=== PATIENT | male | born 1955 | race Caucasian/White ===

== ENCOUNTER → 2024-08-16 | Outpatient (CLI) | payer MEDICARE, MEDICAID, SELFPAY ==
[2024-08-16 08:44] LABS: Glucose Estimated Average 192 mg/dL (80-131); Hemoglobin A1C 8.3 % Hgb (4.8-6.0)
[2024-08-16 09:38] LABS: Alanine Aminotransferase 23 U/L (10-49); Albumin, Serum 4.4 gm/dL (3.4-4.8); Albumin/Globulin Ratio 1.5 (1.2-2.2); Alkaline Phosphatase 73 U/L (46-116); Anion Gap 5 (7-16); Aspartate Amino Transferase < 8 U/L (0-34); BUN/Creatinine Ratio 14 Ratio (12-20); Bilirubin,Total 0.6 mg/dL (0.3-1.2); Blood Urea Nitrogen 17 mg/dL (9-23); Calcium 9.8 mg/dL (8.3-10.6); Calcium (Corrected) 9.8 mg/dL (8.5-10.1); Carbon Dioxide 30.6 mMol/L (20.0-31.0); Cardiac Risk Estimate 3.6 RATIO (4.0-6.7); Chloride 100 mMol/L (98-107); Cholesterol 148 mg/dL (132-200); Creatinine (Component) 1.2 mg/dL (0.6-1.3); Globulin 2.9 gm/dL (2.3-3.5); Glucose 177 mg/dL (74-106); HDL Cholesterol 41 mg/dL (40-60); LDL Cholesterol,Calculated 74 mg/dL (0-130); Osmolality,Calculated 277 (275-295); Potassium 4.4 mMol/L (3.4-5.1); Sodium 136 mMol/L (136-145); Total Protein 7.3 gm/dL (5.7-8.2); Triglycerides 163 mg/dL (30-150); Uric Acid 5.5 mg/dL (3.7-9.2); eGFR > 60 See Note
== END | disposition home or self-care (01) ==
LOC: COPL 07:16
PROVIDERS: PCP Family Medicine; Referring Provider Family Medicine; Visit Provider Family Medicine
DX: E11.65 Type 2 diabetes mellitus with hyperglycemia (principal); E78.2 Mixed hyperlipidemia; E79.0 Hyperuricemia without signs of inflammatory arthritis and tophaceous disease; I10 Essential (primary) hypertension
CPT/HCPCS: 36415; 80053; 80061; 83036; 84550

== ENCOUNTER → 2024-09-13 | Outpatient (CLI) | payer MEDICARE, MEDICAID, SELFPAY ==
--- NOTE | 2024-09-13 12:22 | XR_ITS ---
Examination: Sinus series 3 views TECHNIQUE: Xavier Mendoza lateral sinus series 3 views Exam date and time: September 13, 2024 1415 hours INDICATIONS: Acute frontal sinus pressure and pain 3 months. FINDINGS: Diffuse opacity in the frontal ethmoid air cells Maxillary antra as well as sphenoid air cells also opacified No fluid levels No retention cysts IMPRESSION: Chronic pansinusitis
== END | disposition home or self-care (01) ==
LOC: CDIM 12:07
PROVIDERS: PCP Family Medicine; Referring Provider Family Medicine; Visit Provider Family Medicine
DX: J32.4 Chronic pansinusitis (principal)
CPT/HCPCS: 70220

== ENCOUNTER → 2025-01-05 | Outpatient (CLI) | payer MEDICARE, MEDICAID, SELFPAY ==
[2025-01-05 09:52] LABS: Glucose Estimated Average 160 mg/dL (80-131); Hemoglobin A1C 7.2 % Hgb (4.8-6.0)
[2025-01-05 09:59] LABS: Alanine Aminotransferase 71 U/L (10-49); Albumin, Serum 4.2 gm/dL (3.4-4.8); Albumin/Globulin Ratio 1.4 (1.2-2.2); Alkaline Phosphatase 86 U/L (46-116); Anion Gap 8 (7-16); Aspartate Amino Transferase 38 U/L (0-34); BUN/Creatinine Ratio 14 Ratio (12-20); Bilirubin,Total 0.5 mg/dL (0.3-1.2); Blood Urea Nitrogen 17 mg/dL (9-23); Calcium 9.1 mg/dL (8.3-10.6); Calcium (Corrected) 9.1 mg/dL (8.5-10.1); Carbon Dioxide 28.4 mMol/L (20.0-31.0); Cardiac Risk Estimate 3.2 RATIO (4.0-6.7); Chloride 104 mMol/L (98-107); Cholesterol 146 mg/dL (132-200); Creatinine (Component) 1.2 mg/dL (0.6-1.3); Glucose 158 mg/dL (74-106); HDL Cholesterol 45 mg/dL (40-60); LDL Cholesterol,Calculated 83 mg/dL (0-130); Osmolality,Calculated 283 (275-295); Potassium 4.7 mMol/L (3.4-5.1); Sodium 140 mMol/L (136-145); Total Protein 7.2 gm/dL (5.7-8.2); Triglycerides 89 mg/dL (30-150); Uric Acid 5.8 mg/dL (3.7-9.2); eGFR > 60 See Note
== END | disposition home or self-care (01) ==
LOC: COPL 08:28
PROVIDERS: PCP Family Medicine; Referring Provider Family Medicine; Visit Provider Family Medicine
DX: E11.59 Type 2 diabetes mellitus with other circulatory complications (principal); E78.2 Mixed hyperlipidemia; I10 Essential (primary) hypertension; M10.9 Gout, unspecified
CPT/HCPCS: 36415; 80053; 80061; 83036; 84550

== ENCOUNTER 2025-01-14 18:07 | Emergency (ER) | payer MEDICAID, SELFPAY ==
[2025-01-14 18:12] VITALS: BP 151/97; PULSE 69; RESP 18; TEMP 36.6; O2SAT 95; BMI 38.8
--- NOTE | 2025-01-14 18:38 | PD.EDFALL ---
ED Fall Injury RME/HPI General Chief Complaint: Fall Stated Complaint: LEFT ELBOW, SHOULDER, NECK, LOWER BACK, HIP PAIN Time Seen by Provider: 01/14/25 18:22 Arrival date/time: 01/14/25 18:07 RME / HPI RME / HPI Narrative: 69-year-old male presents to the ED with a complaint of neck, back, left shoulder, left hip, left elbow, left foot pain secondary to a ground-level fall he sustained yesterday. 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 Related Data Home Medications ?Medication ?Instructions ?Recorded ?Confirmed insulin degludec 100 unit/mL 20 - 40 unit subcut QDAY 11/24/18 03/25/23 subcutaneous solution (Tresiba U-100 Insulin) liraglutide 0.6 mg/0.1 mL (18 mg/3 1.8 mg subcut QDAY 11/24/18 03/25/23 mL) subcutaneous pen injector (Victoza 3-Krzysztof) lisinopril 40 mg tablet 10 mg PO QDAY 11/24/18 03/25/23 loratadine 10 mg tablet 10 mg PO QDAY 11/24/18 03/25/23 trazodone 100 mg tablet 100 mg PO QPM 11/24/18 03/25/23 hydrocodone 7.5 mg-acetaminophen 1 tab PO Q6H 07/13/19 03/25/23 325 mg tablet montelukast 10 mg tablet 10 mg PO DAILY 03/25/23 03/25/23 Previous Rx's ?Medication ?Instructions ?Recorded aspirin 81 mg chewable tablet 81 mg PO QDAY ##30 12/10/16 cyclobenzaprine 10 mg tablet 10 mg PO BID #14 tabs 03/22/23 albuterol sulfate 90 mcg/actuation 1 inh inhalation QID PRN shortness 03/28/23 aerosol inhaler of breath or wheezing #6.7 grams doxycycline hyclate 100 mg capsule 100 mg PO QDAY #14 caps 03/28/23 pantoprazole 40 mg tablet,delayed 40 mg PO QDAY #30 tabs 03/28/23 release (Protonix) meloxicam 15 mg tablet 15 mg PO QDAY #10 tabs 01/15/25 Allergies Allergy/AdvReac Type Severity Reaction Status Date / Time sulfamethoxazole Allergy Severe ITCHY,RASH Verified 03/22/23 14:56 trimethoprim Allergy Severe ITCHY,RASH Verified 03/22/23 14:56 Course Orders Category Date Time Status CT cervical spine wo con Stat Exams 01/14/25 18:[address] elbow LT wo con Stat Exams 01/14/25 22:34 Taken XR elbow comp LT min 3V Stat Exams 01/14/25 18:39 Completed XR foot comp LT min 3V Stat Exams 01/14/25 18:41 Completed XR hip LT w pelvis 2-3V Stat Exams 01/14/25 18:39 Completed XR shoulder LT min 2V Stat Exams 01/14/25 18:39 Completed Vital Signs Vital signs: Vital Signs Temperature 97.8 F 01/14/25 18:12 Pulse Rate 69 01/14/25 18:12 Respiratory Rate 18 01/14/25 18:12 Blood Pressure 151/97 H 01/14/25 18:12 Pulse Oximetry (%) 95 01/14/25 18:12 Oxygen Delivery Method Room Air 01/14/25 18:12 Fall Evaluation data The following diagnostics were reviewed and interpreted by me:: radiology exam(s) Interpretation Summary: XR Pelvis/L Hip: FINDINGS: No left hip fracture or dislocation. Right hip bones of the pelvis intact. IMPRESSION: No acute hip or pelvic fracture. XR L Foot: FINDINGS: No acute fracture. No dislocation. Soft tissue vascular calcification. IMPRESSION: No acute fracture. XR L Shoulder: FINDINGS: No shoulder fracture or dislocation. Mild calcific tendinitis. IMPRESSION: No shoulder fracture or dislocation. XR L Elbow: FINDINGS: Nonstandard views. The radial head is dislocated dorsally relative to the articulating surface of the humerus. No definite fracture. IMPRESSION: Dorsal dislocation of the radial head. CT C-Spine: Findings: Axial sections demonstrate intact base of the skull. Advanced disc narrowing C3-C4, C5-C6, C6-C7 and C7-T1. C1 exhibit satisfactory relationship to the odontoid. No acute cervical vertebral body fracture seen. Alignment posterior spinous processes satisfactory. Impression: No acute cervical fracture. Medications / Prescriptions Medications or Prescriptions considered but not ordered:: N/A Discharge Plan Plan Patient Disposition: HOME (Self Care) Discharge Disposition comment: Stable Prescriptions/Referrals Prescriptions/Med Rec: New meloxicam 15 mg tablet 15 mg PO QDAY Qty: 10 0RF No Action aspirin 81 MG tablet,chewable 81 mg PO QDAY Qty: 30 0RF trazodone 100 mg Tablet 100 mg PO QPM lisinopril 40 mg Tablet 10 mg PO QDAY loratadine 10 mg Tablet 10 mg PO QDAY Victoza 3-Krzysztof 0.6 mg/0.1 mL (18 mg/3 mL) Pen Injector 1.8 mg SUBCUT QDAY insulin degludec [Tresiba U-100 Insulin] 100 unit/mL Solution 20 - 40 unit SUBCUT QDAY hydrocodone-acetaminophen 7.5-325 mg Tablet 1 tab PO Q6H cyclobenzaprine 10 mg tablet 10 mg PO BID Qty: 14 0RF montelukast 10 mg tablet 10 mg PO DAILY albuterol sulfate 90 mcg/actuation HFA aerosol inhaler 1 inh inhalation QID PRN (Reason: shortness of breath or wheezing) Qty: 6.7 0RF pantoprazole [Protonix] 40 mg tablet,delayed release (DR/EC) 40 mg PO QDAY Qty: 30 0RF doxycycline hyclate 100 mg capsule 100 mg PO QDAY Qty: 14 0RF Referrals: Chapin Braswell MD [Primary Care Provider] - In 1 week Problem List Clinical Impression: Multiple contusions, Chronic elbow pain Patient/Caregiver Discharge Instructions Education Materials: ED Contusion, Upper Extremity, ED Muscle Strain, Extremity Additional Instructions: Ice and elevate the painful areas. Follow-up with your primary care physician in 24 to 48 hours. Return to the ED for any new or worsening symptoms. Print Language: Estonian Stand Alone Forms: Lucia Award Info., Patient Portal Info Letter PA/DARCI Supervising Physician PA/DARCI Supervising Physician: Dr Stanton
--- NOTE | 2025-01-14 18:39 | XR_ITS ---
Examination: CT cervical spine without contrast 2-D sagittal reconstructions 2-D coronal reconstructions 3-D reconstructions. Exam date and time:January 14, 2025 1850 hours INDICATIONS: Patient fell today with injury to the neck, neck pain CTDI:vol (mGy) 20.1 DLP: (mGycm) 458 Technique: Multiple 2 mm axial sections of the cervical spine have been obtained. The coronal and sagittal reconstructions have been obtained. 3-D reconstructions have been obtained. Low dose protocols were performed. One or more of the following dose reduction techniques were used; automated exposure control, adjustment of the mA and/or KV according to patient size, use of iterative reconstruction technique. Findings: Axial sections demonstrate intact base of the skull. Advanced disc narrowing C3-C4, C5-C6, C6-C7 and C7-T1 C1 exhibit satisfactory relationship to the odontoid. No acute cervical vertebral body fracture seen. Alignment posterior spinous processes satisfactory. Impression: No acute cervical fracture.
--- NOTE | 2025-01-14 18:39 | XR_ITS ---
Examination: Left elbow 3 views Technique: Elbow AP, oblique, lateral 3 views Exam date and time: January 1855 hours INDICATIONS: Injury to the elbow yesterday, elbow pain FINDINGS: Nonstandard views. The radial head is dislocated dorsally relative to the articulating surface of the humerus No definite fracture IMPRESSION: Dorsal dislocation of the radial head.
--- NOTE | 2025-01-14 18:39 | XR_ITS ---
Examination:Left hip AP, lateral, AP pelvis 3 views Technique: Hip AP lateral, AP pelvis, 3 views Exam date and time:January 14, 2025 1855 hours INDICATIONS: Injury to left hip yesterday, left hip pain. FINDINGS: No left hip fracture or dislocation Right hip bones of the pelvis intact IMPRESSION: No acute hip or pelvic fracture.
--- NOTE | 2025-01-14 18:39 | XR_ITS ---
Examination: Shoulder,left, 3 views Technique: Shoulder AP internal rotation, AP external rotation, Y view shoulder, 3 views Exam date and time :January 14, 2025 1905 hours INDICATIONS: Injury to the shoulder yesterday, shoulder pain. FINDINGS: No shoulder fracture or dislocation Mild calcific tendinitis IMPRESSION: No shoulder fracture or dislocation
--- NOTE | 2025-01-14 18:41 | XR_ITS ---
Examination: Foot, left, 3 views Technique: AP, oblique, lateral views foot, 3 views Date and time of exam: January 14, 2025 1855 hours INDICATIONS: Injury to left foot yesterday, with foot pain no acute fracture. No dislocation Soft tissue vascular calcification IMPRESSION: No acute fracture
--- NOTE | 2025-01-14 22:34 | XR_ITS ---
Examination: CT left elbow, without contrast. 2-D sagittal reconstructions. 2-D coronal reconstructions. 3-D reconstructions. Date and time of exam:January 15, 2020 5:50 PM Comparison October 22, 2008 INDICATIONS: Patient fell today with injury to available elbow pain and deformity CTDI: vol (mGy):6 DLP: (mGycm):127 Technique: Multiple 1.25 mm axial sections of the without intravenous contrast have been obtained. 2-D sagittal and coronal reconstructions have been obtained. 3-D reconstructions have been obtained. Low dose protocols were performed. One or more of the following dose reduction techniques were used; automated exposure control, adjustment of the mA and/or KV according to patient size, use of iterative reconstruction technique. Findings: Again noted posterior dislocation of the elbow, and apparent chronic finding also noted on the October 22, 2008 exam No acute fracture No foreign body No cortical bone destruction IMPRESSION: Again noted posterior displacement of the radial head relative to the articulating surface of the humerus, identical position compared with October 22, 2008
--- NOTE | 2025-01-15 01:23 | PRELIM_ITS ---
CT left elbow without intravenous contrast (axial sections with sagittal and coronal reformats): January 14, 2025 at 2350 hours Clinical History: Injury/pain/deformity. Comparison: No prior study is available for comparison. Findings: There is osteopenia. No acute fracture is seen. There is proximal and radial migration of the radial head, suggestive of chronic dislocation. Lucencies are seen in the distal humerus and at the olecranon process, likely secondary to degenerative changes. No significant joint effusion is seen. The visualized muscles are unremarkable with maintained intermuscular fat planes. There is ill defined fat stranding and mild soft tissue swelling in posterior aspect of elbow and proximal forearm, likely soft tissue contusion. Ossific densities are seen at the tip of the olecranon process, likely representing calcific tendinitis. Impression: 1. No evidence of acute fracture. Proximal and radial migration of the radial head, suggestive of chronic dislocation. Recommend clinical correlation. 2. Soft tissue contusion in the posterior aspect of the elbow. 3. Ossific densities at the tip of the olecranon process, likely representing calcific tendinitis. Recommend clinical correlation. Discussion Details: Results Discussed With : Dr Stanton at 01:14 AM 01/15/2025 Report Electronically Signed By: Swetha Aquino 01/15/2025 1:23:24 AM [EST]
== END 2025-01-15 02:06 | disposition home or self-care (01) ==
PROVIDERS: Emergency Provider Emergency Medicine; PCP Family Medicine
DX: S53.005A Unspecified dislocation of left radial head, initial encounter (principal); S99.922A Unspecified injury of left foot, initial encounter; S19.9XXA Unspecified injury of neck, initial encounter; S79.912A Unspecified injury of left hip, initial encounter; S49.92XA Unspecified injury of left shoulder and upper arm, initial encounter; W18.30XA Fall on same level, unspecified, initial encounter
CPT/HCPCS: 72125; 73030; 73080; 73200; 73502; 73630; 99284

== ENCOUNTER 2025-01-23 08:03 | Emergency (ER) | payer MEDICAID, SELFPAY ==
[2025-01-23 08:04] VITALS: BMI 37.5
[2025-01-23 08:10] VITALS: BP 190/81; PULSE 74; RESP 18; TEMP 36.7; O2SAT 98
--- NOTE | 2025-01-23 08:16 | XR_ITS ---
Examination: CT abdomen and pelvis without contrast. Coronal 3-D reconstructions. Sagittal 2-D reconstructions. Date and time of exam:January 23, 2025 0844 hours INDICATIONS: Patient fell 4 days ago with injury to the abdomen, left flank pain left-sided hip pain CTDI: vol (mGy): 13.8 DLP: (mGycm): 884 Technique: Axial images of the abdomen have been obtained, 3 mm slice thickness Intravenous contrast material has not been administered. Low dose protocols were performed. One or more of the following dose reduction techniques were used; automated exposure control, adjustment of the mA and/or KV according to patient size, use of iterative reconstruction technique. Findings: No focal liver or splenic lesions Absent gallbladder No pancreatic or adrenal mass No perinephric hematoma Abdominal aorta intact, no free blood in the abdomen or pelvis No pericecal inflammatory change Contracted urinary bladder Mediolateral prostate dimension 5.2 cm Moderate osteopenia 8mm sclerotic focus in the body of L5, 5 mm sclerotic focus in the first sacral segment Hips appear intact IMPRESSION: No abdominal parenchymal laceration Abdominal aorta intact No free blood in the abdomen. 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
[2025-01-23] MEDS: MORPHINE SULF INJ 10 MG/ML VIAL 4 MG IVP (08:33)
[2025-01-23] MEDS: ONDANSETRON INJ 2 MG/ML INJ 2 ML 4 MG IVP (08:33)
[2025-01-23 09:01] LABS: Basophils # (Auto) 0.1 Thou/mm3 (0.0-0.2); Basophils % (Auto) 1 % (0-2.5); Eosinophils # (Auto) 0.2 Thou/mm3 (0.0-0.5); Eosinophils % (Auto) 2 % (0-10); Hematocrit 41.7 % (41.0-53.0); Hemoglobin 14.7 g/dL (13.5-16.0); Immature Granulocytes % (Auto) 1 % (0-0); Immature Granulocytes Auto 0.06 Thou/mm3 (0.00-0.00); Lymphocytes # (Auto) 1.7 Thou/mm3 (1.0-4.8); Lymphocytes % (Auto) 19 % (10-50); Mean Corpuscular HGB Conc 35.3 g/dl (31.0-37.0); Mean Corpuscular Hemoglobin 29.9 pg (25.0-35.0); Mean Corpuscular Volume 85 fL (80-100); Monocytes # (Auto) 0.8 Thou/mm3 (0.0-0.8); Monocytes % (Auto) 9 % (0-12); Neutrophils # (Auto) 6.2 Thou/mm3 (1.8-7.7); Neutrophils % (Auto) 68 % (37-80); Nucleated Red Blood Cell % 0 /100 WBC (0); Platelet Count 220 Thou/mm3 (140-440); RDW Standard Deviation 41.2 fL (35.1-43.9); Red Blood Count 4.91 Miln/mm3 (4.50-5.90); White Blood Count 9.1 Thou/mm3 (3.8-10.6)
[2025-01-23 09:20] LABS: Alanine Aminotransferase 84 U/L (10-49); Albumin, Serum 4.3 gm/dL (3.4-4.8); Albumin/Globulin Ratio 1.4 (1.2-2.2); Alkaline Phosphatase 92 U/L (46-116); Anion Gap 7 (7-16); Aspartate Amino Transferase 42 U/L (0-34); BUN/Creatinine Ratio 13 Ratio (12-20); Bilirubin,Total 0.7 mg/dL (0.3-1.2); Blood Urea Nitrogen 15 mg/dL (9-23); Calcium 9.5 mg/dL (8.3-10.6); Calcium (Corrected) 9.5 mg/dL (8.5-10.1); Carbon Dioxide 29.5 mMol/L (20.0-31.0); Chloride 100 mMol/L (98-107); Creatinine (Component) 1.2 mg/dL (0.6-1.3); Estimated Creatinine Clearance 69.3 mL/min (>60); Glucose 158 mg/dL (74-106); Lipase 33 U/L (12-53); Osmolality,Calculated 275 (275-295); Potassium 4.7 mMol/L (3.4-5.1); Sodium 136 mMol/L (136-145); Total Protein 7.3 gm/dL (5.7-8.2); eGFR > 60 See Note
[2025-01-23] MEDS: KETOROLAC INJ 30 MG/ML VIAL 15 MG IVP (09:47)
[2025-01-23 09:59] LABS: Collection Type, Urine Clean Catch
[2025-01-23 10:01] VITALS: BP 134/61; PULSE 67; RESP 18; TEMP 36.4; O2SAT 94
--- NOTE | 2025-01-23 10:27 | PD.EDBACK ---
ED Back Injury Pain RME/HPI General Chief Complaint: Hip Injury/Pain Stated Complaint: PAIN, 8/10, L) SIDE/HIP/ KIDNEY Time Seen by Provider: 01/23/25 08:30 Arrival date/time: 01/23/25 08:03 Limitations: no limitations RME / HPI RME / HPI Narrative: 69 year old male with history of CAD, hypertension, diabetes, and COPD presents to the ED for evaluation of worsening left sided back and hip pain following a fall on 01/13/2025. Patient reports he slipped on water at a grocery store and fell onto his left side. Evaluated here at that time, with imaging reported as unremarkable, and was discharged home. Since then, the pain has gradually worsened and became severe today. He describes the pain as aching and rates it as severe. He denies any new falls or injuries. The patient also states he was referred to pain management by a transitions manager involved in his case but has not yet received any medications. Related Data Home Medications ?Medication ?Instructions ?Recorded ?Confirmed insulin degludec 100 unit/mL 20 - 40 unit subcut QDAY 11/24/18 03/25/23 subcutaneous solution (Tresiba U-100 Insulin) liraglutide 0.6 mg/0.1 mL (18 mg/3 1.8 mg subcut QDAY 11/24/18 03/25/23 mL) subcutaneous pen injector (Victoza 3-Krzysztof) lisinopril 40 mg tablet 10 mg PO QDAY 11/24/18 03/25/23 loratadine 10 mg tablet 10 mg PO QDAY 11/24/18 03/25/23 trazodone 100 mg tablet 100 mg PO QPM 11/24/18 03/25/23 hydrocodone 7.5 mg-acetaminophen 1 tab PO Q6H 07/13/19 03/25/23 325 mg tablet montelukast 10 mg tablet 10 mg PO DAILY 03/25/23 03/25/23 Previous Rx's ?Medication ?Instructions ?Recorded aspirin 81 mg chewable tablet 81 mg PO QDAY ##30 12/10/16 cyclobenzaprine 10 mg tablet 10 mg PO BID #14 tabs 03/22/23 albuterol sulfate 90 mcg/actuation 1 inh inhalation QID PRN shortness 03/28/23 aerosol inhaler of breath or wheezing #6.7 grams doxycycline hyclate 100 mg capsule 100 mg PO QDAY #14 caps 03/28/23 pantoprazole 40 mg tablet,delayed 40 mg PO QDAY #30 tabs 03/28/23 release (Protonix) meloxicam 15 mg tablet 15 mg PO QDAY #10 tabs 01/15/25 hydrocodone 5 mg-acetaminophen 325 1 tab PO Q6H pain #20 tabs 01/23/25 mg tablet Allergies Allergy/AdvReac Type Severity Reaction Status Date / Time sulfamethoxazole Allergy Severe ITCHY,RASH Verified 01/23/25 08:07 trimethoprim Allergy Severe ITCHY,RASH Verified 01/23/25 08:07 Review of Systems Review of Systems Systems Reviewed: All systems reviewed, normal except as documented Past Medical History Past Medical History NEUROLOGIC: Positive Migraine CARDIAC: Positive Angina and Hypertension RESPIRATORY: Positive Chronic Obstructive Pulmonary Disease (COPD) and Sleep Apnea GASTROINTESTINAL: Positive Gastrointestinal Disorders and Gall Bladder Disease GENITOURINARY: Positive Genitourinary Disorders, Kidney Stones and Benign Prostatic Hyperplasia MUSCULOSKELETAL: Positive Musculoskeletal Disorders, Arthritis, Fractures and Degenerative Joint Disease ENDOCRINE: Positive Endocrine Disorders and Diabetes Mellitus Type 2 PSYCHO/SOCIAL: Positive Anxiety OTHER HISTORY: Positive Hospitalization, Falls, Chicken Pox, Measles and Mumps Family History FAMILY HISTORY: Positive Family Cancer and Family Surgery Surgical History SURGICAL: Positive Angiogram, Abdominal Surgery and Vasectomy Social History SMOKING STATUS: Former smoker SUBSTANCE USE: does not use ED Exam General Limitations: Present no limitations General appearance: Present alert and in no apparent distress Head Head exam: Present atraumatic Eye Eye exam: Present normal appearance, PERRL and EOMI ENT ENT exam: Present normal exam, normal oropharynx and mucous membranes moist Neck Neck exam: Present normal inspection, full ROM and trachea midline Chest Chest inspection: Present normal inspection and symmetric chest wall rise Respiratory Respiratory exam: Present normal lung sounds bilaterally Cardiovascular Cardiovascular exam: Present regular rate, normal rhythm and normal heart sounds Abdominal Exam Abdominal exam: Present soft, normal bowel sounds and other (Ventral hernia, obese, ) Extremities Exam Extremities exam: Present full ROM and other (No shortening of legs, the patient hesitates to move his left leg but does have FROM with external and internal rotation, ) Back Exam Back exam: Present full ROM and other (Paraspinous muscle spasms in the lower thoracic area over T12-L2 bilaterally, L>R. No spinous tenderness. ) Neurological Exam Neurological exam: Present alert, oriented X3 and CN II-XII intact Psychiatric Psychiatric exam: Present normal affect and normal mood Skin Skin exam: Present warm, dry, intact and normal color Course Quality Measures none Orders Category Date Time Status Insert IV NOW Care 01/23/25 08:[address] abdomen pelvis wo con Stat Exams 01/23/25 08:16 Completed CBC Stat Lab 01/23/25 08:52 Completed Comprehensive Metabolic Panel Stat Lab 01/23/25 08:52 Completed Lipase Stat Lab 01/23/25 08:52 Completed UA, C/S IF [Urinalysis, C/S if Indicated] Stat Lab 01/23/25 09:49 Completed Ketorolac Inj [Toradol Inj] Med 01/23/25 09:03 Discontinued 15 mg IVP X1 ONE Morphine Inj Med 01/23/25 08:16 Discontinued 4 mg IVP X1 ONE Ondansetron Inj [Zofran Inj] Med 01/23/25 08:16 Discontinued 4 mg IVP X1 ONE Vital Signs Vital signs: Vital Signs Temperature 98.0 F 01/23/25 08:10 Pulse Rate 74 01/23/25 08:10 Respiratory Rate 18 01/23/25 08:10 Blood Pressure 190/81 H 01/23/25 08:10 Pulse Oximetry (%) 98 01/23/25 08:10 Oxygen Delivery Method Room Air 01/23/25 08:10 Pulse ox is 98% on room air which is adequate. Back Pain / Injury MDM Narrative MDM Narrative:: Simona Payan am scribing for and in the presence of Dr. Squires. Patient remains clinically stable throughout the emergency department visit. We reviewed all the results, analysis, and treatment plans. Patient is amenable to discharge. Strict return precautions were outlined. Patient was discharged in stable condition. Patient data External records reviewed:: [facility] previous records (I reviewed ED Visit after fall on 01/13/2025 ) Clinical information provided by:: patient Social determinants that could affect healthcare access:: none Patient has the following chronic illnesses:: CAD, hypertension, diabetes, and COPD Fall on 01/13/2025 How is presenting disease/condition affected by chronic disease/condition?: exacerbated by Evaluation data The following diagnostics were reviewed and interpreted by me:: lab results and radiology exam(s) Lab and/or radiology exams considered but not ordered:: None Interpretation Summary: Ordering Physician: Rashad SILVESTRE),Feng NUNEZ Date of Service: 01/23/25 Procedure(s): CT abdomen pelvis wo con Accession Number(s): [id number] cc: Rashad SILVESTRE),Feng NUNEZ; Daniele Katz MD; NO PRIMARY/FAMILY,PHYSICIAN~ Examination: CT abdomen and pelvis without contrast. Coronal 3-D reconstructions. Sagittal 2-D reconstructions. Date and time of exam:January 23, 2025 0844 hours INDICATIONS: Patient fell 4 days ago with injury to the abdomen, left flank pain left-sided hip pain CTDI: vol (mGy): 13.8 DLP: (mGycm): 884 Technique: Axial images of the abdomen have been obtained, 3 mm slice thickness Intravenous contrast material has not been administered. Low dose protocols were performed. One or more of the following dose reduction techniques were used; automated exposure control, adjustment of the mA and/or KV according to patient size, use of iterative reconstruction technique. Findings: No focal liver or splenic lesions Absent gallbladder No pancreatic or adrenal mass No perinephric hematoma Abdominal aorta intact, no free blood in the abdomen or pelvis No pericecal inflammatory change Contracted urinary bladder Mediolateral prostate dimension 5.2 cm Moderate osteopenia 8mm sclerotic focus in the body of L5, 5 mm sclerotic focus in the first sacral segment Hips appear intact IMPRESSION: No abdominal parenchymal laceration Abdominal aorta intact No free blood in the abdomen. 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 Dictated By: Daniele Katz MD Signed By: <Electronically signed by Daniele Katz MD in OV> 01/23/25 0907 Medications / Prescriptions Medications or Prescriptions considered but not ordered:: None Medication administrations:: Medication Administration History Discontinued Medications Ketorolac Tromethamine (Ketorolac Inj 30 Mg/Ml Vial) 15 mg IVP X1 ONE Stop: 01/23/25 09:04 Last Admin: 01/23/25 09:47 Dose: 15 mg Documented By: EH Morphine Sulfate (Morphine Sulf Inj 10 Mg/Ml Vial) 4 mg IVP X1 ONE Stop: 01/23/25 08:17 Last Admin: 01/23/25 08:33 Dose: 4 mg Documented By: DB Ondansetron HCl (Ondansetron Inj 2 Mg/Ml Inj 2 Ml) 4 mg IVP X1 ONE; Protocol Stop: 01/23/25 08:17 Last Admin: 01/23/25 08:33 Dose: 4 mg Documented By: DB See above Consultations Consultation(s) initiated? (list below): No Diagnosis Differential diagnosis back pain/injury: lumbar radiculopathy, sciatica, strain of lumbar region, thoracic back pain and discitis Most likely diagnosis given after review of the tests above:: Fall Multiple contusions Back spasms Admission Indicated Admission indicated?: not indicated Admission Request Was there a request for admission?: No Disposition Plan Disposition Plan: Discharge Discharge Attestation Discharge Attestation: The patient and all family members were given an opportunity to ask questions and understood the discharge instructions. Discharge instructions specifically effects, indications for sooner follow up or return to the emergency department, and the expected course of current diagnosis. Patient condition: Stable Discharge Plan Plan Patient Disposition: HOME (Self Care) Prescriptions/Referrals Prescriptions/Med Rec: New hydrocodone-acetaminophen 5-325 mg tablet 1 tab PO Q6H MDD 4 Qty: 20 0RF No Action aspirin 81 MG tablet,chewable 81 mg PO QDAY Qty: 30 0RF trazodone 100 mg Tablet 100 mg PO QPM lisinopril 40 mg Tablet 10 mg PO QDAY loratadine 10 mg Tablet 10 mg PO QDAY Victoza 3-Krzysztof 0.6 mg/0.1 mL (18 mg/3 mL) Pen Injector 1.8 mg SUBCUT QDAY insulin degludec [Tresiba U-100 Insulin] 100 unit/mL Solution 20 - 40 unit SUBCUT QDAY hydrocodone-acetaminophen 7.5-325 mg Tablet 1 tab PO Q6H cyclobenzaprine 10 mg tablet 10 mg PO BID Qty: 14 0RF montelukast 10 mg tablet 10 mg PO DAILY albuterol sulfate 90 mcg/actuation HFA aerosol inhaler 1 inh inhalation QID PRN (Reason: shortness of breath or wheezing) Qty: 6.7 0RF pantoprazole [Protonix] 40 mg tablet,delayed release (DR/EC) 40 mg PO QDAY Qty: 30 0RF doxycycline hyclate 100 mg capsule 100 mg PO QDAY Qty: 14 0RF meloxicam 15 mg tablet 15 mg PO QDAY Qty: 10 0RF Referrals: No Primary/Family,Physician [Primary Care Provider] - In 1 week Problem List Clinical Impression: Fall, Multiple contusions, Back spasm Patient/Caregiver Discharge Instructions Education Materials: ED Muscle Spasm, ED Muscle Strain, Extremity Additional Instructions: On your CT report, there is Sclerotic foci L5 and S1, consider early osteoblastic metastatic disease, recommend whole body nuclear medicine bone scan follow-up. Follow-up with your primary care doctor in 3 to 5 days for recheck. You can return to the emergency department sooner if symptoms worsen or if you notice any new, concerning issues. Print Language: Setswana Stand Alone Forms: Lucia Award Info., Patient Portal Info Letter
[2025-01-23 10:38] LABS: Bilirubin,Urine Negative (Negative); Blood,Urine Negative (Negative); Clarity,Urine Clear (Clear/Hazy); Color,Urine Lt-Yellow (Lt Yel-Yel); Culture Indicated,Urine Not Indicated; Glucose, Urine Negative (Negative); Ketones,Urine Negative (Negative); Leukocyte Esterase,Urine Negative (Negative); Nitrite,Urine Negative (Negative); PH,Urine 6.5 (5.0-7.0); Protein,Urine Negative (Neg - Trace); RBC,Urine 2 /hpf (0-3); Specific Gravity,Urine 1.016 (1.001-1.035); Squamous Epithelial Cell,Urine < 1 /hpf (0-5); Urobilinogen,Urine Negative mg/dL (0.0-1.0); WBC,Urine < 1 /hpf (0-5)
[2025-01-23 11:39] VITALS: BP 129/92; PULSE 73; RESP 18; TEMP 36.7; O2SAT 97
== END 2025-01-23 11:40 | disposition home or self-care (01) ==
PROVIDERS: Nurse Practitioner Primary Care; Emergency Provider Family Medicine
DX: M62.830 Muscle spasm of back (principal); T14.8XXA Other injury of unspecified body region, initial encounter; W01.0XXA Fall on same level from slipping, tripping and stumbling without subsequent striking against object, initial encounter; Y92.512 Supermarket, store or market as the place of occurrence of the external cause; G95.89 Other specified diseases of spinal cord; M85.88 Other specified disorders of bone density and structure, other site; E11.9 Type 2 diabetes mellitus without complications; I10 Essential (primary) hypertension; I25.10 Atherosclerotic heart disease of native coronary artery without angina pectoris; J44.9 Chronic obstructive pulmonary disease, unspecified; M25.552 Pain in left hip
CPT/HCPCS: 36415; 74176; 80053; 81001; 83690; 85025; 96374; 96375; 99284; J1885; J2270; J2405

== ENCOUNTER → 2025-02-14 | Outpatient (CLI) | payer MEDICARE, MEDICAID, SELFPAY ==
--- NOTE | 2025-02-14 12:30 | XR_ITS ---
Examination: Bone scan whole body, radioisotope Date and time of exam: February 14, 2025 1217 hours INDICATIONS: Patient fell 6 months ago with injury to the lower back, lower back pain Technique: Study has been performed with intravenous administration of 24.6 mci 99M technetium MDP. Anterior, posterior whole body images are obtained. Images have been obtained including the lower extremities. Findings: Increased isotopic involving mid dorsal vertebral body, likely T7 Otherwise symmetrical isotope accumulation IMPRESSION: Positive for increased isotope accumulation mid dorsal vertebral body, likely T7 Consider CT scan thoracic spine without contrast follow-up
== END | disposition home or self-care (01) ==
PROVIDERS: PCP Family Medicine; Referring Provider Family Medicine; Visit Provider Family Medicine
DX: M89.8X8 Other specified disorders of bone, other site (principal)
CPT/HCPCS: 78306; A9503

== ENCOUNTER → 2025-02-18 | Outpatient (CLI) | payer MEDICARE, MEDICAID, SELFPAY ==
--- NOTE | 2025-02-18 15:15 | XR_ITS ---
Examination: MRI lumbar spine without contrast Date and time of exam: February 18, 2025, 1620 hours INDICATIONS: Lower back pain radiating down the left leg with urinary retention one month after falling one month ago with injury to the back Technique: Multiple MRI axial and sagittal sections lumbar spine. Sagittal T2-weighted images, TR 3500, TE 118 T1 weighted transverse sections, TR 688 T8.5, T2-weighted sagittal sections T1 weighted sagittal sections TR 621, TE 30 T2 axial sections, TR 4, 190, TE 84. Findings: Adequate alignment lumbar vertebral bodies Mild old wedging T12 No acute lumbar fracture Diffuse lumbar disc desiccation Axial images demonstrate no focal lumbar disc protrusion No spondylolisthesis IMPRESSION: No lumbar fracture No focal lumbar disc protrusion
== END | disposition home or self-care (01) ==
LOC: SMRI 14:40
PROVIDERS: PCP Family Medicine; Referring Provider Family Medicine; Visit Provider Family Medicine
DX: S39.92XA Unspecified injury of lower back, initial encounter (principal); W19.XXXA Unspecified fall, initial encounter
CPT/HCPCS: 72148

== ENCOUNTER 2025-04-11 11:03 | Emergency (ER) | payer OTHER, MEDICAID, SELFPAY ==
--- NOTE | 2025-04-11 11:41 | EKG_ITS ---
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
--- NOTE | 2025-04-11 11:41 | XR_ITS ---
Examination: Duplex scan of the lower extremity, unilateral left Date and time of exam: The second 2024 to hours INDICATIONS: Leg pain beginning 3 weeks ago Technique: Duplex scan of the extremity veins using B-mode/grayscale imaging and Doppler spectral analysis and color flow Attention is directed to internal echogenicity, compression and augmentation involving these veins, color flow assessment, spectral analysis Findings: Major deep venous structures in the extremity demonstrate normal course and caliber. There is no evidence of deep vein thrombosis. Normal color flow and spectral analysis Impression: Negative for DVT..
--- NOTE | 2025-04-11 11:41 | XR_ITS ---
Examination: PA lateral chest 2 views TECHNIQUE: Upright PA lateral chest 2 views Date and time: April 11, 2025 1218 hours INDICATIONS: Shortness of breath beginning 2 days ago. FINDINGS: Mild prominence left ventricle No lobar pneumonia or pulmonary edema Moderate osteopenia IMPRESSION: No pneumonia or pulmonary edema
[2025-04-11 11:43] VITALS: BP 138/81; PULSE 73; RESP 18; TEMP 36.7; O2SAT 96
--- NOTE | 2025-04-11 11:44 | PD.EDRME ---
Rapid Medical Screening Exam RME Arrival date/time: 04/11/25 11:03 69-year-old male with a history of COPD, type 2 diabetes, hypertension presents to the emergency room with a chief complaint of shortness of breath and left lower leg swelling x 3 days I have greeted and performed a focused initial assessment of this patient. A comprehensive ED assessment and evaluation of the patient, analysis of all test results, and completion of the medical decision making process will be conducted by additional ED providers. Chief Complaint: Shortness of Breath/Dyspnea Time Seen by Provider: 04/11/25 11:34 Vital signs reviewed by provider: Yes
[2025-04-11 13:12] LABS: Basophils # (Auto) 0.1 Thou/mm3 (0.0-0.2); Basophils % (Auto) 1 % (0-2.5); Eosinophils # (Auto) 0.2 Thou/mm3 (0.0-0.5); Eosinophils % (Auto) 2 % (0-10); Hematocrit 43.2 % (41.0-53.0); Hemoglobin 14.8 g/dL (13.5-16.0); Immature Granulocytes Auto 0.03 Thou/mm3 (0.00-0.00); Lymphocytes # (Auto) 1.7 Thou/mm3 (1.0-4.8); Lymphocytes % (Auto) 19 % (10-50); Mean Corpuscular HGB Conc 34.3 g/dl (31.0-37.0); Mean Corpuscular Hemoglobin 29.8 pg (25.0-35.0); Mean Corpuscular Volume 87 fL (80-100); Monocytes # (Auto) 0.6 Thou/mm3 (0.0-0.8); Monocytes % (Auto) 7 % (0-12); Neutrophils # (Auto) 6.2 Thou/mm3 (1.8-7.7); Neutrophils % (Auto) 70 % (37-80); Nucleated Red Blood Cell # 0.00 Thou/mm3 (0.00-0.00); Nucleated Red Blood Cell % 0 /100 WBC (0); Platelet Count 225 Thou/mm3 (140-440); RDW Standard Deviation 42.5 fL (35.1-43.9); Red Blood Count 4.97 Miln/mm3 (4.50-5.90); White Blood Count 8.8 Thou/mm3 (3.8-10.6)
[2025-04-11 13:29] LABS: B-Type Natriuretic Peptide 25 pg/mL (0-100); D-Dimer < 250 ng/mL (<600)
[2025-04-11 13:31] LABS: INR 1.0 (0.9-1.3); Partial Thromboplastin Time 24.5 Seconds (22.0-36.0); Prothrombin Time 10.8 Seconds (9.0-12.2)
[2025-04-11 13:34] LABS: Alanine Aminotransferase 18 U/L (10-49); Albumin, Serum 4.2 gm/dL (3.4-4.8); Albumin/Globulin Ratio 1.4 (1.2-2.2); Alkaline Phosphatase 66 U/L (46-116); Anion Gap 9 (7-16); Aspartate Amino Transferase 15 U/L (0-34); BUN/Creatinine Ratio 9 Ratio (12-20); Bilirubin,Total 0.4 mg/dL (0.3-1.2); Blood Urea Nitrogen 9 mg/dL (9-23); Calcium 10.1 mg/dL (8.3-10.6); Calcium (Corrected) 10.1 mg/dL (8.5-10.1); Carbon Dioxide 26.4 mMol/L (20.0-31.0); Chloride 102 mMol/L (98-107); Creatinine (Component) 1.0 mg/dL (0.6-1.3); Estimated Creatinine Clearance 87.7 mL/min (>60); Globulin 2.9 gm/dL (2.3-3.5); Glucose 180 mg/dL (74-106); Osmolality,Calculated 277 (275-295); Potassium 4.1 mMol/L (3.4-5.1); Sodium 137 mMol/L (136-145); Total Protein 7.1 gm/dL (5.7-8.2); Troponin I < 0.002 ng/mL (0.0-0.045); eGFR > 60 See Note
[2025-04-11] MEDS: MORPHINE SULF INJ 10 MG/ML VIAL 4 MG IVP (14:24)
[2025-04-11] MEDS: ONDANSETRON INJ 2 MG/ML INJ 2 ML 4 MG IVP (14:24)
[2025-04-11 14:28] VITALS: BP 126/85; PULSE 68; RESP 18; O2SAT 96
--- NOTE | 2025-04-11 14:47 | PC.NURSE ---
Patient came into the hospital for c/o shortness of breath, left leg swelling and back pain and constipation. Patient stated that he fell 4 months ago that has been causing pain to his back. Pt is currently alert and oriented, VSS, IV inserted to right AC. Pt continoues to c/o pain to back that circles to his abdomen.
[2025-04-11 14:52] LABS: Collection Type, Urine Clean Catch; Squamous Epithelial Cell,Urine 0 /hpf (0-5)
[2025-04-11 15:01] LABS: Bilirubin,Urine Negative (Negative); Blood,Urine Negative (Negative); Clarity,Urine Clear (Clear/Hazy); Color,Urine Lt-Yellow (Lt Yel-Yel); Glucose, Urine Negative (Negative); Ketones,Urine Negative (Negative); Leukocyte Esterase,Urine Negative (Negative); Nitrite,Urine Negative (Negative); PH,Urine 7.0 (5.0-7.0); Protein,Urine Negative (Neg - Trace); RBC,Urine < 1 /hpf (0-3); Specific Gravity,Urine 1.011 (1.001-1.035); Urobilinogen,Urine Negative mg/dL (0.0-1.0); WBC,Urine < 1 /hpf (0-5)
[2025-04-11] MEDS: KETOROLAC INJ 30 MG/ML VIAL IVP (15:31)
--- NOTE | 2025-04-11 15:35 | PD.EDADULT ---
ED General RME/HPI General Chief complaint: Shortness of Breath/Dyspnea Stated complaint: L) FOOT SWELLING, DYSPNEA, L) SIDE ABD PAIN Time Seen by Provider: 04/11/25 11:34 Arrival date/time: 04/11/25 11:03 CC: Left low back pain, left leg pain left leg swelling onset going for 3 days denies any resolution at nighttime. Patient denies chest pain but is complaining of intermittent shortness of breath. Note: Patient states he has chronic back pain in the center of the back but not in the left flank as stated. RME / HPI RME / HPI narrative: 04/11/25 11:03 69-year-old male with a history of COPD, type 2 diabetes, hypertension presents to the emergency room with a chief complaint of shortness of breath and left lower leg swelling x 3 days I have greeted and performed a focused initial assessment of this patient. A comprehensive ED assessment and evaluation of the patient, analysis of all test results, and completion of the medical decision making process will be conducted by additional ED providers. Related Data Home Medications ?Medication ?Instructions ?Recorded ?Confirmed insulin degludec 100 unit/mL 20 - 40 unit subcut QDAY 11/24/18 03/25/23 subcutaneous solution (Tresiba U-100 Insulin) liraglutide 0.6 mg/0.1 mL (18 mg/3 1.8 mg subcut QDAY 11/24/18 03/25/23 mL) subcutaneous pen injector (Victoza 3-Krzysztof) lisinopril 40 mg tablet 10 mg PO QDAY 11/24/18 03/25/23 loratadine 10 mg tablet 10 mg PO QDAY 11/24/18 03/25/23 trazodone 100 mg tablet 100 mg PO QPM 11/24/18 03/25/23 hydrocodone 7.5 mg-acetaminophen 1 tab PO Q6H 07/13/19 03/25/23 325 mg tablet montelukast 10 mg tablet 10 mg PO DAILY 03/25/23 03/25/23 Previous Rx's ?Medication ?Instructions ?Recorded aspirin 81 mg chewable tablet 81 mg PO QDAY ##30 12/10/16 cyclobenzaprine 10 mg tablet 10 mg PO BID #14 tabs 03/22/23 albuterol sulfate 90 mcg/actuation 1 inh inhalation QID PRN shortness 03/28/23 aerosol inhaler of breath or wheezing #6.7 grams doxycycline hyclate 100 mg capsule 100 mg PO QDAY #14 caps 03/28/23 pantoprazole 40 mg tablet,delayed 40 mg PO QDAY #30 tabs 03/28/23 release (Protonix) meloxicam 15 mg tablet 15 mg PO QDAY #10 tabs 01/15/25 hydrocodone 5 mg-acetaminophen 325 1 tab PO Q6H pain #20 tabs 01/23/25 mg tablet polyethylene glycol 3350 17 4 g PO QDAY #238 grams 04/11/25 gram/dose oral powder (Miralax) Allergies Allergy/AdvReac Type Severity Reaction Status Date / Time sulfamethoxazole Allergy Severe ITCHY,RASH Verified 04/11/25 11:07 trimethoprim Allergy Severe ITCHY,RASH Verified 04/11/25 11:07 Review of Systems Review of Systems Narrative Review of Systems: GEN: No fever, no chills, no weight loss EYES: No discharge, no visual changes, no pain HEENT: No ear pain, no congestion, no sore throat PULM: No shortness of breath, no cough, no congestion CV: No chest pain, no dyspnea on exertion, no palpitations GI: No nausea, no vomiting, no diarrhea, no pain, no constipation : No frequency, no urgency, no dysuria MUSC/SKEL: No joint pain, no back pain,+ leg pain SKIN: No rash PSYCH: No hallucinations, no depression HEME/LYMPH: No easy bleeding or bruising tendencies NEURO: No weakness, no headache Past Medical History Past Medical History NEUROLOGIC: Positive Migraine; Negative Neurological Disorders or Seizures CARDIAC: Positive Angina and Hypertension; Negative Cardiac Disorders or Congestive Heart Failure RESPIRATORY: Positive Chronic Obstructive Pulmonary Disease (COPD) and Sleep Apnea; Negative Asthma GASTROINTESTINAL: Positive Gastrointestinal Disorders and Gall Bladder Disease GENITOURINARY: Positive Genitourinary Disorders, Kidney Stones and Benign Prostatic Hyperplasia; Negative Renal Disease MUSCULOSKELETAL: Positive Musculoskeletal Disorders, Arthritis, Fractures and Degenerative Joint Disease 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) ENDOCRINE: Positive Endocrine Disorders and Diabetes Mellitus Type 2; Negative Diabetes Mellitus Type 1 HEMATOLOGIC: Negative Blood Disorders or Sickle Cell Disease PSYCHO/SOCIAL: Positive Anxiety OTHER HISTORY: Positive Hospitalization, Falls, Anesthesia Reactions, Chicken Pox, Measles and Mumps; Negative Shingles, Blood Transfusions or Cancer Family History FAMILY HISTORY: Positive Family Cancer and Family Surgery; Negative Family Cardiac Disorders or Family Anesthesia Reaction Surgical History SURGICAL: Positive Angiogram, Abdominal Surgery and Vasectomy Social History SMOKING STATUS: Former smoker SUBSTANCE USE: does not use ED Exam Narrative Physical exam: [General: Obese in mild discomfort but not in any acute distress Head normocephalic HEENT: Within acceptable limits Neck is supple nontender Chest equal chest rise nontender to palpation Respiratory: Clear to auscultation no wheezes crackles or rubs CV: Rate rhythm is regular no murmurs rubs or clicks Abdomen is distended secondary to body habitus soft nontender no masses positive bowel sounds all 4 quadrants Back: No CVA tenderness no spinous process tenderness from cervical spine thoracic and lumbar spine Skin: Intact no petechiae rash induration ulceration or crepitus Extremities: Moving all extremity against resistance cap refill less than 2 seconds neurosensory intact Neuro: Awake alert oriented x3 Glascow coma 15 no focal deficits] Course Course Course Narrative: At 1530, the patient. Complete became lightheaded and bradycardic with rates going into the high 40s. Patient denies any chest pain this was confirmed by EKG. At 1615 on a more detailed interview with the patient, he states that he has had 4 episodes of lightheaded and dizziness lasting 1 to 2 minutes in the past 3 to 4 weeks. We witnessed the 1 listed above, where the patient became bradycardic. Patient's case discussed with Dr. Key Salinas his marketing communications leader who agrees to see the patient in the ER in approximately 1.5 hours. At 1801, patient states the left low back pain is starting to return and is requesting additional pain medication. Patient seen by Dr. Rivera in the emergency room at 2030, he can be discharged home from a cardiac standpoint to follow-up in the office for Holter monitor secondary to his recurrent symptomatic bradycardia episodes. In the meantime patient will be started on laxative for his chronic constipation. He can follow-up with his primary care provider. He and the are advised if there is a worsening of symptoms return to the emergency room for reevaluation. Quality Measures none Orders Category Date Time Status EKG (ED ONLY) *Do not use* NOW Care 04/11/25 11:42 Completed IV [Insert IV] NOW Care 04/11/25 14:12 Active EKG (ED Only) Stat Exams 04/11/25 11:41 Draft US venous doppler LE LT Stat Exams 04/11/25 11:41 Completed XR chest 2V Stat Exams 04/11/25 11:41 Completed A1C [Glycohemoglobin w (eAG)] Routine Lab 04/11/25 19:37 Received BNP [B-Type Natriuretic Peptide] Stat Lab 04/11/25 12:33 Completed CBC Stat Lab 04/11/25 12:33 Completed CMP [Comprehensive Metabolic Panel] Stat Lab 04/11/25 12:33 Completed D-Dimer Stat Lab 04/11/25 12:33 Completed Free T4 (Free Thyroxine) Routine Lab 04/11/25 19:04 Received Magnesium Routine Lab 04/11/25 19:04 Received PT [Prothrombin Time with INR] Stat Lab 04/11/25 12:33 Completed PTT [Partial Thromboplastin Time] Stat Lab 04/11/25 12:33 Completed Thyroid Stimulating Hormone Routine Lab 04/11/25 19:04 Received Troponin I Stat Lab 04/11/25 12:33 Completed Urinalysis Stat Lab 04/11/25 14:40 Completed Ketorolac Inj [Toradol Inj] Med 04/11/25 14:57 Discontinued 30 mg IVP X1 ONE Morphine Inj Med 04/11/25 18:00 Discontinued 2 mg IVP X1 ONE Morphine Inj Med 04/11/25 14:03 Discontinued 4 mg IVP X1 ONE Ondansetron Inj [Zofran Inj] Med 04/11/25 14:03 Discontinued 4 mg IVP X1 ONE Vital Signs Vital signs: Vital Signs Temperature 98.1 F 04/11/25 11:43 Pulse Rate 73 04/11/25 11:43 Respiratory Rate 18 04/11/25 11:43 Blood Pressure 138/81 H 04/11/25 11:43 Pulse Oximetry (%) 96 04/11/25 11:43 Oxygen Delivery Method Room Air 04/11/25 11:43 Discharge Plan Plan Patient Disposition: HOME (Self Care) Patient condition on transfer: Stable Prescriptions/Referrals Prescriptions/Med Rec: New polyethylene glycol 3350 [Miralax] 17 gram/dose powder 4 g PO QDAY Qty: 238 0RF No Action aspirin 81 MG tablet,chewable 81 mg PO QDAY Qty: 30 0RF trazodone 100 mg Tablet 100 mg PO QPM lisinopril 40 mg Tablet 10 mg PO QDAY loratadine 10 mg Tablet 10 mg PO QDAY Victoza 3-Krzysztof 0.6 mg/0.1 mL (18 mg/3 mL) Pen Injector 1.8 mg SUBCUT QDAY insulin degludec [Tresiba U-100 Insulin] 100 unit/mL Solution 20 - 40 unit SUBCUT QDAY hydrocodone-acetaminophen 7.5-325 mg Tablet 1 tab PO Q6H hydrocodone-acetaminophen 5-325 mg tablet 1 tab PO Q6H MDD 4 Qty: 20 0RF cyclobenzaprine 10 mg tablet 10 mg PO BID Qty: 14 0RF montelukast 10 mg tablet 10 mg PO DAILY albuterol sulfate 90 mcg/actuation HFA aerosol inhaler 1 inh inhalation QID PRN (Reason: shortness of breath or wheezing) Qty: 6.7 0RF pantoprazole [Protonix] 40 mg tablet,delayed release (DR/EC) 40 mg PO QDAY Qty: 30 0RF doxycycline hyclate 100 mg capsule 100 mg PO QDAY Qty: 14 0RF meloxicam 15 mg tablet 15 mg PO QDAY Qty: 10 0RF Referrals: Chapin Braswell MD [Primary Care Provider] - In 1 week Problem List Clinical Impression: Constipation, Acute on chronic low back pain, Symptomatic bradycardia Patient/Caregiver Discharge Instructions Education Materials: Treating Constipation, ED Back Pain (Acute or Chronic), ED Bradycardia, ED Constipation (Adult) Print Language: Eritrean Stand Alone Forms: Lucia Award Info., Patient Portal Info Letter, Work/School Release PA/MEDICATION CARE MANAGER Supervising Physician PA/MEDICATION CARE MANAGER Supervising Physician: Chi Duval ENP [facility] Clinical Information Provided by patient Medical Records Reviewed [facility] Meds/Rx Considered, not Ordered None Labs/Rad/Tests considered, not Ordered None Chronic Illness/Social Conditions Add or document further as needed: Chronic back pain EKG EKG not done EKG Interpretation narrative: EKG performed at 1151 shows a ventricular rate of 69 parable 136 QRS of 94 QTc of 370 there is normal sinus rhythm. Repeat EKG performed at 1529 shows a ventricular rate of 5 3 UT interval 131 QRS 102 QTc of 374 this is sinus bradycardia. Lab Interpretation Labs: interpreted by id Lab(s) interpretation(s): CBC shows no acute leukocytosis anemia thrombocytopenia Coags within acceptable limits CMP shows glucose of 188 no other electrolyte imbalances renal impairment transaminitis or T. bili elevation Troponin is negative BMP is unremarkable Urine is unremarkable for urinary tract infection. Imaging Imaging interpretation: interpreted by me Provider imaging interpretation(s): Ultrasound of the lower extremities negative for DVT Chest x-ray as interpreted by me read by radiology as negative for any acute finding. Medication Administration(s) Medication Administration History Discontinued Medications Ketorolac Tromethamine (Ketorolac Inj 30 Mg/Ml Vial) 30 mg IVP X1 ONE Stop: 04/11/25 14:58 Last Admin: 04/11/25 15:31 Dose: 30 mg Documented By: DEEPAK Morphine Sulfate (Morphine Sulf Inj 10 Mg/Ml Vial) 4 mg IVP X1 ONE Stop: 04/11/25 14:04 Last Admin: 04/11/25 14:24 Dose: 4 mg Documented By: Morphine Sulfate (Morphine Sulf Inj 10 Mg/Ml Vial) 2 mg IVP X1 ONE Stop: 04/11/25 18:01 Last Admin: 04/11/25 18:29 Dose: 2 mg Documented By: DEEPAK Ondansetron HCl (Ondansetron Inj 2 Mg/Ml Inj 2 Ml) 4 mg IVP X1 ONE; Protocol Stop: 04/11/25 14:04 Last Admin: 04/11/25 14:24 Dose: 4 mg Documented By:
[2025-04-11] MEDS: MORPHINE SULF INJ 10 MG/ML VIAL 2 MG IVP (18:29)
--- NOTE | 2025-04-11 18:30 | ESCONSULT_ITS ---
HPI Data of Consult Primary Care Provider: Chapin Braswell MD Consult Narrative Reason for consult: Symptomatic Bradycardia History of present illness: Laron Lundberg is a 69M pmhx significant for CAD on ASA, EDUARDO not on CPAP, HTN, IDDM2, and COPD who presents with shortness of breath and left lower leg swelling for the past 3 days as well as more frequent episodes of lightheadedness with associated nausea, diaphoresis, and central chest squeezing like pressure. In January of 2025, fell on his L hip and recently L hip pain worsening on activity with LLE worsening swelling. Endorses constipation for the past few months, worse recently, only having 1 small BM every other day. No pain in left leg, just tightness . States that 2 months ago, has had 5-6 episodes of 1 minute of lightheadedness with black spots in vision, not influenced by head position/movement, standing, sitting or laying down, and sometimes it happens when he's standing or laying down. Reports chest like squeezing and pressure centrally, with nausea, paleness and feeling sweaty and clammy during episode. Endorses severe sleep apnea but is unable to wear CPAP due to chronic sinusitis which he uses loratidine and montelukast regularly. Endorses PND and severe orthopnea, only being able to lie flat for a few hours and sleeps upright in a chair daily. Does have some exertional dyspnea, however cannot walk long distances due to hip pain. Reports having nuclear stress test a while ago but does not know results because machine was broken at the time. Reports having cardiac cath >5 years ago and does not know if he had stenosis and does not think he has blockage. Denies cardiac history other than leaky valve . No hx of OR or stent placement in the past. Denies current chest pain, rececnt illnesses or fever or urinary symptoms. PMHx: had hip dysplasia as a child, as above Surgical Hx: remote cholecystectomy, remote appendectomy, R meniscal surgery ~2019 FHx: mother lung cancer, father prostate and bladder cancer, younger sister at 53 from colon cancer Social Hx: quit smoking 7 y/a, 20 pack year hx 1ppd for 20 years, rarely drinks beers and smokes marijuana, retired [employer] Allergies: Bactrim rash Medications: ASA 81 mg QD, Pine Top 7.5 mg QID, Pregabalin 75 mg QD, Tresiba 44 mg am, on SSI (glucose in AM usually 120, but after meals 170), Mounjaro 7.5 mg qwk, trazodone 150 mg QD, lisinopril 20 mg QD, montelukast at night, loratidine in the morning. Was recently prescribed rousuvastatin 20 mg QD and tamsulosin 0.4 mg QD but has not started to take due to current symptoms. Cardiology was consulted for workup and management of symptomatic bradycardia. cc:: cc: Review of Systems Review of Systems Systems Reviewed: All systems reviewed, normal except as documented Exam Vital Signs Temp Pulse Resp BP Pulse Ox O2 Del Method 98.1 F 68 18 126/85 H 96 Room Air 04/11/25 11:43 04/11/25 14:28 04/11/25 14:28 04/11/25 14:28 04/11/25 14:28 04/11/25 14:28 Narrative Exam GENERAL: AOx3, no acute distress, obese male HEENT: NC/AT, mucous membranes moist, bilateral sclera anicteric CARDIOVASCULAR: regular rate and rhythm, S1/S2 present, no murmurs appreciated PULMONARY: distant breath sounds but clear to auscultation bilaterally, no rales/rhonchi/wheezes ABDOMINAL: soft, non-tender, no rebound/guarding, bowel sounds present, d istended, tympanic percussion, umbilical hernia EXTREMITIES: RLE trace pitting edema, LLE 2+ pitting edema, 5/5 BLE strength SKIN: warm and dry, intact, no rashes NEURO: CN II-XII grossly intact, no focal deficits, alert, following commands Results Labs 04/11/25 12:33 04/11/25 12:33 Labs: Short CBC 04/11/25 Range/Units 12:33 WBC 8.8 (3.8-10.6) Thou/mm3 Hgb 14.8 (13.5-16.0) g/dL Hct 43.2 (41.0-53.0) % Plt Count 225 (140-440) Thou/mm3 BMP 04/11/25 12:33 Sodium 137 Potassium 4.1 Chloride 102 Carbon Dioxide 26.4 BUN 9 Creatinine 1.0 Glucose 180 H Calcium 10.1 Cardiac Enzymes 04/11/25 Range/Units 12:33 Troponin I < 0.002 (0.0-0.045) ng/mL Liver Function 04/11/25 Range/Units 12:33 Total Bilirubin 0.4 (0.3-1.2) mg/dL AST 15 (0-34) U/L ALT 18 (10-49) U/L Alkaline Phosphatase 66 (46-116) U/L Albumin 4.2 (3.4-4.8) gm/dL Urine 04/11/25 Range/Units 14:40 Urine Color Lt-Yellow (Lt Yel-Yel) Urine Clarity Clear (Clear/Hazy) Urine pH 7.0 (5.0-7.0) Ur Specific [place] 1.011 (1.001-1.035) Urine Protein Negative (Neg - Trace) Urine Glucose (UA) Negative (Negative) Quality Measures Quality Measures VTE prophylaxis Advance care planning discussed with:: patient Medications Home Medications and Allergies Home Medications ?Medication ?Instructions ?Recorded ?Confirmed ?Type insulin degludec 100 unit/mL 20 - 40 unit subcut QDAY 11/24/18 03/25/23 History subcutaneous solution (Tresiba U-100 Insulin) liraglutide 0.6 mg/0.1 mL (18 mg/3 1.8 mg subcut QDAY 11/24/18 03/25/23 History mL) subcutaneous pen injector (Victoza 3-Krzysztof) lisinopril 40 mg tablet 10 mg PO QDAY 11/24/1803/25 History loratadine 10 mg tablet 10 mg PO QDAY 11/24/1803/25 History trazodone 100 mg tablet 100 mg PO QPM 11/24/1803/25 History hydrocodone 7.5 mg-acetaminophen 1 tab PO Q6H 07/13/19 03/25/23 History 325 mg tablet montelukast 10 mg tablet 10 mg PO DAILY 03/25/2303/10 History Allergies Allergy/AdvReac Type Severity Reaction Status Date / Time sulfamethoxazole Allergy Severe ITCHY,RASH Verified 04/11/25 11:07 trimethoprim Allergy Severe ITCHY,RASH Verified 04/11/25 11:07 Visit Medications Discontinued Medications Ketorolac Tromethamine (Ketorolac Inj 30 Mg/Ml Vial) 30 mg IVP X1 ONE Stop: 04/11/25 14:58 Last Admin: 04/11/25 15:31 Dose: 30 mg Morphine Sulfate (Morphine Sulf Inj 10 Mg/Ml Vial) 4 mg IVP X1 ONE Stop: 04/11/25 14:04 Last Admin: 04/11/25 14:24 Dose: 4 mg Morphine Sulfate (Morphine Sulf Inj 10 Mg/Ml Vial) 2 mg IVP X1 ONE Stop: 04/11/25 18:01 Last Admin: 04/11/25 18:29 Dose: 2 mg Ondansetron HCl (Ondansetron Inj 2 Mg/Ml Inj 2 Ml) 4 mg IVP X1 ONE; Protocol Stop: 04/11/25 14:04 Last Admin: 04/11/25 14:24 Dose: 4 mg Assessment & Plan Plan Laron Lundberg is a 69M pmhx significant for CAD on ASA, EDUARDO not on CPAP, HTN, IDDM2, and COPD who presents with shortness of breath and left lower leg swelling for the past 3 days as well as more frequent episodes of lightheadedness with associated nausea, diaphoresis, and central chest squeezing like pressure. Cardiology was consulted for symptomatic bradycardia workup. #LLE swelling #Abdominal distension #Constipation Presented with increased LLE swelling for the past few days with 2+ LLE pitting edema and trace RLE pitting edema. 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 Possible lymphphatic drainage blockage or stasis from pain and immobilization, such as positional edema. Patient reports increasing abdominal distension with 1 hard small BM every other day. Recently started Mounjaro one month ago with recent increase in dose which is known to cause gastroparesis. Patient has been taking Pine Top 7.5 QID for many years. Patient is also in significant pain, decreasing gastric motility. Combination of aforementioned factors can be contributing to abdominal distension which can subsequently compress L iliac vein due to stool burden. DDx: lymphatic stasis vs venous blockage as mentioned above. Less likely arterial blockage as bilateral pedal pulses 2+, LLE not painful nor cold compared to RLE. Plan: - Recommend abdominal imaging to rule out compression - Recommend stool softeners to relieve burden #Symptomatic bradycardia #Presyncope Patient reports 5-6 episodes of presyncope over the last two months in increasing frequency, had two more in the ED (one in the waiting room and one after being roomed). EKG during second episode showed sinus bradycardia rate 53, however per ED physician HR was as low as high 40s. Patient reports associated nausea, diaphoresis, paleness, and central chest squeezing like pressure during such episodes that last about 1 minute. Has occurred when standing and lying down. In ED, initial EKG showed sinus rhythm rate 63, repeat EKG during presyncopal episode showed sinus bradycardia rate [address] elevation or depression QTc 377. Trops <0.002 and BNP 25 negative. K 4.1, D-dimer wnl at <250. Ddx: unstable angina, untreated EDUARDO, vasovagal from pain vs abdominal distension, sick sinus syndrome, chronic Pine Top, hypothyroidism, medication s/e, orthostatic hypotension Due to no heart block seen on EKG as well as patient currently in sinus rhythm with no bradycardia on examination, no immediate intervention necessary at this time, such as pacemaker. Plan: - Recommend outpatient Holter monitoring - Encouraged adequate hydration and OTC medications for bowel regimen #CAD #IDDM2 #EDUARDO Per patient has CAD and takes home ASA 81 mg QD. Admission trops neg and BNP wnl. Patient complains of 1 minute episodes of presyncope with spotty vision, with associated nausea, diaphoresis, paleness and central chest pressure. EKG showed sinus bradycardia rate [address] elevations or depressions. Admission troponin <0.002 and BNP wnl. 2018 cardiac cath showed no significant coronary lesions. Jun 2024 received outpatient nuclear stress test which was normal. Had previously seen Dr. Rivera in office, however lost to follow up. No hx of heart disease except for leaky valve , no hx of heart failure or OR. With troponins negative, no ST changes on EKG, and recent negative stress test, less likely active blockage present. High suspicion for stenosis due to comorbidities but at this time, emergent cardiac catheterization is not indicated. HbA1c 7.5 with estimated glucose average 169. Currently takes Tresiba 44 units in AM and SSI for meal times, but takes up to 10 units. AM glucose is reported in 120s, however after meals 170s. Recently started on Mounjaro 7.5 mg qwk and was initially started on the lowest dose about a month ago. Patient reports severe sleep apnea, however unable to use CPAP machine due to chronic sinusitis. Does endorse severe orthopnea, sitting up in a chair to sleep, as well as PND and has never been diagnosed with heart failure. Plan: - Recommend outpatient echo and cardiac catheterization - Recommend tighter glucose control and diabetes management outpatient, educated regarding lifestyle changes such as dietary choices and exercise as tolerated - Recommend stricter management of EDUARDO and to use CPAP Plan of care discussed with attending Dr. Rivera, anesthesia associate. Jessica Bobo, DO PGY-1 Internal Medicine Attending Provider Attestation/Addendum I have personally seen and examined the patient separately on the above date of service and discussed the plan of care with the resident. I reviewed the resident Dr. Jessica Bobo consultation progress note and agree with the resident findings and plan in the note above and have also edited the documentation to reflect my findings and plan. Walt Rivera M.D. Interventional Cardiology
[2025-04-11 18:33] VITALS: BP 164/102; PULSE 64; RESP 13; TEMP 37.3; O2SAT 92
[2025-04-11 20:36] VITALS: BP 141/90; PULSE 67; RESP 18; TEMP 36.6; O2SAT 90
[2025-04-11 20:46] LABS: Glucose Estimated Average 169 mg/dL (80-131); Hemoglobin A1C 7.5 % Hgb (4.8-6.0)
[2025-04-11 21:10] LABS: Free T4 (Free Thyroxine) 1.09 ng/dL (0.89-1.76); Magnesium 1.6 mg/dL (1.6-2.6); Thyroid Stimulating Hormone 6.40 uIU/mL (0.55-4.78)
[2025-04-11 21:23] VITALS: BP 145/77; PULSE 60; RESP 18; O2SAT 95
== END 2025-04-11 21:25 | disposition home or self-care (01) ==
PROVIDERS: Nurse Practitioner Family; Registered Nurse General Practice; Emergency Provider Emergency Medicine; PCP Family Medicine
DX: M54.50 Low back pain, unspecified (principal); G89.29 Other chronic pain; K59.00 Constipation, unspecified; R00.1 Bradycardia, unspecified; I10 Essential (primary) hypertension; R06.02 Shortness of breath; M79.605 Pain in left leg; Z87.891 Personal history of nicotine dependence
CPT/HCPCS: 36415; 71046; 80053; 81001; 83036; 83735; 83880; 84439; 84443; 84484; 85025; 85379; 85610; 85730; 93005; 93971; 96374; 96375; 96376; 99284; J1885; J2270; J2405

== ENCOUNTER → 2025-07-17 | Outpatient (CLI) | payer MEDICARE, MEDICAID, SELFPAY ==
[2025-07-17 09:27] LABS: Glucose Estimated Average 128 mg/dL (80-131); Hemoglobin A1C 6.1 % Hgb (4.8-6.0)
[2025-07-17 11:04] LABS: Alanine Aminotransferase 8 U/L (10-49); Albumin, Serum 4.3 gm/dL (3.4-4.8); Albumin/Globulin Ratio 1.3 (1.2-2.2); Alkaline Phosphatase 67 U/L (46-116); Anion Gap 10 (7-16); Aspartate Amino Transferase 13 U/L (0-34); BUN/Creatinine Ratio 14 Ratio (12-20); Bilirubin,Total 0.4 mg/dL (0.3-1.2); Blood Urea Nitrogen 15 mg/dL (9-23); Calcium 9.6 mg/dL (8.3-10.6); Calcium (Corrected) 9.6 mg/dL (8.5-10.1); Carbon Dioxide 28.6 mMol/L (20.0-31.0); Cardiac Risk Estimate 2.2 RATIO (4.0-6.7); Chloride 102 mMol/L (98-107); Cholesterol 91 mg/dL (132-200); Creatinine (Component) 1.1 mg/dL (0.6-1.3); Globulin 3.2 gm/dL (2.3-3.5); Glucose 122 mg/dL (74-106); HDL Cholesterol 41 mg/dL (40-60); LDL Cholesterol,Calculated 34 mg/dL (0-130); Osmolality,Calculated 283 (275-295); Potassium 4.5 mMol/L (3.4-5.1); Sodium 141 mMol/L (136-145); Total Protein 7.5 gm/dL (5.7-8.2); Triglycerides 81 mg/dL (30-150); Uric Acid 6.3 mg/dL (3.7-9.2); eGFR > 60 See Note
== END | disposition home or self-care (01) ==
LOC: COPL 08:09
PROVIDERS: PCP Family Medicine; Referring Provider Family Medicine; Visit Provider Family Medicine
DX: E11.69 Type 2 diabetes mellitus with other specified complication (principal); E78.2 Mixed hyperlipidemia; I10 Essential (primary) hypertension; M10.9 Gout, unspecified
CPT/HCPCS: 36415; 80053; 80061; 83036; 84550